=== PATIENT | male | born 1975 | race Caucasian/White ===

== ENCOUNTER 2016-10-13 09:50 | Emergency (ER) | payer OTHER ==
[~2016-10-13] VITALS: Ht 182.9 cm; Wt 97.5 kg
[~2016-10-13 09:50] MED LIST: AMIODARONE PO; ASPIRIN EC81 M1 PO; ATORVASTATIN CA10 MG PO; BACTRIM DS TABL1 TA1 PO; COREG PO; DIGOX0.125 MG PO; DIGOX0.25 MG PO; FLOMAX0.4 M1 PO; GABAPENTIN300 MG PO; K-DUR20 ME2 PO; LASIX20 MG PO; LOPRESSOR PO; NO MEDICATIONS; POTASSIUM CHLO10 MEQ PO; PROTONIX PO; TUMS500 M1 PO; TYLENOL #3 PO; WELLBUTRIN100 MG; XARELTO; XARELTO20 MG PO; ZESTRIL5 MG PO
== END 2016-10-13 12:50 | disposition home or self-care (01) ==
LOC: CED 09:50
DX: I10 Essential (primary) hypertension (principal); I11.0 Hypertensive heart disease with heart failure; I50.9 Heart failure, unspecified; I25.10 Atherosclerotic heart disease of native coronary artery without angina pectoris; I48.91 Unspecified atrial fibrillation; F17.210 Nicotine dependence, cigarettes, uncomplicated; Z79.899 Other long term (current) drug therapy
CPT/HCPCS: 99283